=== PATIENT | female | born 1980 | race Caucasian/White ===

== ENCOUNTER 2022-10-01 04:56 | Emergency (ER) | payer OTHER ==
[~2022-10-01] VITALS: Ht 175.3 cm; Wt 59.0 kg
[2022-10-01] MEDS ORDERED: FLONASE ALLERG9.9 ML NAS (06:22)
--- OUTSIDE RECORDS SUMMARY | 2022-10-01 06:56 | XMS ---
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 [place] VISIT COUNT (12 MO.) [address] [facility] TOTAL 5 NOTE: Visits indicate total known visits. ED/C VISIT TRACKING (12 MO.) 10/01/2022 04:58 [facility] [place] [place] TYPE: Emergency COMPLAINT: - EAR PAIN AND HER HEAD IS BURSTING 09/16/2022 19:21 [facility] [place] TYPE: Emergency DIAGNOSES: - Weakness - Otalgia, right ear - Otalgia 08/24/2022 09:45 [facility] [place] TYPE: Emergency DIAGNOSES: - Ear Fullness - Person with feared health complaint in whom no diagnosis is made - Cold Symptoms 08/11/2022 20:01 [facility] [place] TYPE: Emergency DIAGNOSES: - Head Injury - Gastro-esophageal reflux disease without esophagitis - Postconcussional syndrome - Medical Follow-up 06/25/2022 23:50 [facility] [place] TYPE: Emergency DIAGNOSES: - Head Pain - Acute post-traumatic headache, not intractable - Head Injury INPATIENT VISIT TRACKING (12 MO.) No inpatient visits to display in this time frame [email or web address]
== END 2022-10-01 06:33 | disposition home or self-care (01) ==
LOC: ED 04:56
DX: H69.83 Other specified disorders of Eustachian tube, bilateral (principal); F15.10 Other stimulant abuse, uncomplicated; Z20.822 Contact with and (suspected) exposure to COVID-19
CPT/HCPCS: 36415; 80053; 81003; 84703; 85025; 87502; 99283; U0003